=== PATIENT | female | born 1980 | race American Indian/Alaskan Native ===

== ENCOUNTER 2016-10-14 13:56 | Emergency (ER) | payer MEDICAID, OTHER ==
[2016-10-14 16:17] VITALS: BMI 23.3
--- NOTE | 2016-10-14 18:20 | US ---
Ultrasound biophysical profile Indication: Unclear GA Technique: Grayscale, color flow, and M-mode sonographic images of the single live intrauterine were obtained. Comparison: None available Findings: There is a single live intrauterine gestation. The fetus is in cephalic position. Anterior fundal placenta. There is no evidence of previa. There is a normal amount of amniotic fluid. The LEXY measures 11 cm . M-mode imaging demonstrates a heart rate to be 140.7 beats per min. movements 2/2 breathing 2/2 tone 2/2 Amniotic fluid 2/2 Total score impression: 8/8 Impression: Biophysical profile of 8 out of 8. Single live intrauterine in cephalic position with a heart rate of 140.7 beats per min. Estimated gestational age 36 weeks 5 days.
--- NOTE | 2016-10-14 18:24 | US ---
age ultrasound Indication: Unsure of CATHLEEN Comparison: biophysical profile performed 10/14/16 Technique: Real-time ultrasound was performed through the pelvis. Findings: There is a single living fetus in cephalic presentation. Amniotic fluid volume is within normal limits. Anterior fundal placenta. The placenta is not previa. Bilateral ovaries were not visualized. Cervix length measures approximately 3.8 cm. Measurements and calculations: Fetus has a composite sonographic age of 36 weeks, 5 days plus/-1 week. This calculation is based on the biparietal diameter, head circumference, abdominal circumference, and femur length. Estimated heart rate 147.3 beats per min. Impression: Single living fetus with a composite sonographic age of 36 weeks 5 days. Estimated heart rate 147.3 beats per min.
--- NOTE | 2016-10-14 20:19 | OBDCSUM ---
Datetime: 10/14/2016 18:58 Discharged to, Provider: Home Follow up at, Provider: hospital Disch Instr Activity: Normal activity Disch Instr Diet: Regular Discharge Instructions, Provider: Routine instructions given Discharge Diagnosis, Provider: False Labor - Undelivered Discharge Time: 10/14/2016 20:16 Follow up in weeks, Provider: next week Disch Referrals: None Disch Activity Restrictions: No exercising; No lifting; Minimize walking; No sexual activity; Nothin g in vagina - [place], tampons, douche Discharge Comment, Provider: 35 y/o F 39.5 wks GA, LMP 01/11/1016, CATHLEEN 10/16/16 comes to the ED c/o low er abdo pain which started 2 days ago. Not in active labor. no ctx/Bv/LOF, +FM patient observed in OB ED, labs ordered, growth US done. per US GA is around 36.5 weeks. BPP done unremarkable and suitable w/ GA of 36.5 wks. pt is schaduled for c/s on next friday. P: f/u HepB, RPR, HIV, Rubella, Type_screen pt given Labor precautions continue PNV come to ED if pain worsens Case discussed with Dr. Blossom Espinal, PGY-1
--- NOTE | 2016-10-14 20:19 | OBHP ---
Datetime: 10/14/2016 15:19 IP Adm Impression: Term, intrauterine IP Chief Complaint Other: Pain IP Admit Plan: Observation/Evaluation Admit Comment, IP Provider: KYLIE# [id number] A 35 y/o F 39.5 wks GA, LMP 01/11/1016, CATHLEEN 10/16/16 comes to the ED c/o lower abdo pain which started 2 days ago, goes from front to back, 5/10 in sev erity and sharp stabbing knife like pain. Activities make it worse, nothing makes it better. pain is constant since last 2 days but severe during night and morning. - negative for LOF/VB, + ctx and + FM PNC: not since September 11 when she came to [facility] from [place], visited doctor twice in [place] PNI: none PNL: everything unremarkable so far U/S: was done on september 06, no issues POBH: , 2 term NVDs complicated by varicosities and lots of bleeding after deliveries. last on e was premature C/S to avoid any hemorrhage or bleeding PGYN: no PAP, tested for HIV/STDs were negative as per pt ROS: mild headache, no N/V, unremarkable PMH: Varicosities PSH: C/S to avoid Varicosity associated bleeding All: NKDA Meds: PNV Immunizations: Received 2 so far, doesn't know which one SH: no A/S/D VS: 114/75 FHR: 132 No ctx PE: NAD B/L LEs varicosities big varicosity on left vulva and vaginal area A: A 35 y/o F 39.5 wks GA, LMP 01/11/1016, CATHLEEN 10/16/16 comes to the ED c/o lower abdo pain which starte d 2 days ago. No active labor P: Monitor VS Monitor FHR f/u growth US to determine GA and CATHLEEN (possible c/s!) NPO (last meal at 1pm) f/u HepB, RPR, HIV, Rubella, Type_screen Case discussed with Dr. Blossom Espinal, PGY-[address] Cerrato - Patient evaluated with the resident. Patient is a , 2 previous and CD x 1 with CATHLEEN provided by patient 10/16. If CATHLEEN were correct, patient would be 39.5wks today. P libby presents with vaginal pain. Patient has care in [facility], no care in [place], can not find a clinic that will accept her because she is so far along. Patient has painful leg and vaginal varicosities, as per patient her last was done at term for increased bleeding with variocit ies. FHR = 130 mod radha, +accels, no decels, no contractions. VE=1/thick/high. TOCO - no contractions. Only recor patient has is an U/S that dates the patient on 09/06 that gives an EDC of 10/31 w ith the baby measuring about 32 wks. If that is her due date she is 37.4 wks today. Explained to oracio ent that third trimester U/S can be up to 3wks off+/-, U/S done today which measured fetus measuring around 36.5 wks ovarall. All measurements were 36-37 wks. Patient is not in labor, fetus is not in di stress - routine repeat otherwise is advised at after 39 wks. Based on this information, th e CATHLEEN being used for the patient is 10/31 and scheduled repeat for 10/25, manisha all l abs and GBS collected. Explained to patient in detail and with interpretor what information was found , her confirmed due date at this point and labor precautions and reason to come back to hospital [facility]. All questions by patient answered. Patient otherwise will return for repeat 10/25 Extremities - PN: Abnormal Abdomen - PN: Normal Back - PN: Normal Lungs - PN: Normal Heart - PN: Normal Neurologic - PN: Normal General - PN: Normal Presentation-Admit: Vertex FHR - Baseline A Provider: 130 Contraction Comments Provider: none Comments, ACOG Physical Exam: B/L LEs varicosities big varicosity on left vulva and vaginal area Gestation - Est Wks by US: 39.5 EGA AdmitDate IP: 39.5 IP Chief Complaint: Uterine contractions; Maternal discomfort NICHD Variability Prov Fetus A: Moderate 6-25bpm NICHD Accel Fetus A IP Provider: [id number] NICHD Decel Fetus A IP Provider: None Genitourinary Exam: Abnormal
[2016-10-14 23:18] VITALS: BP 108/63; PULSE 62; RESP 17; TEMP 99; O2SAT 100
[2016-10-15 17:02] LABS: RAPID PLASMA REAGIN NONREACTIVE (NONREACTIVE)
== END 2016-10-14 19:00 | disposition home or self-care (01) ==
LOC: H.EROB2 13:56
DX: O26.893 Other specified pregnancy related conditions, third trimester (principal); R10.30 Lower abdominal pain, unspecified; Z3A.39 39 weeks gestation of pregnancy

== ENCOUNTER 2016-10-19 12:27 | Inpatient (IN) | payer MEDICAID, OTHER ==
[2016-10-19 14:00] VITALS: BMI 23.4
[2016-10-19] MEDS: Lactated Ringer's 1,000 ML IV SCH ×2 (14:13→14:15)
[2016-10-19] MEDS ORDERED: Lactated Ringer's 1,000 ML IV SCH ×3 (14:44→19:45)
[2016-10-19] MEDS ORDERED: ceFAZolin 2 GM in Sodium Chloride 0.9% 100 ML IVPB ONE (14:44)
[2016-10-19] MEDS ORDERED: Sodium Chloride 0.9% 1,000 ML IV SCH (14:45)
[2016-10-19] MEDS ORDERED: Succinylcholine 200 mg/10 ml Inj IV ONE (15:22)
[2016-10-19] MEDS ORDERED: ePHEDrine 50 mg/ml Inj ONE ×2 (15:22→16:03)
[2016-10-19] MEDS ORDERED: Propofol 10 mg/ml Inj (20 ML) ONE (15:23)
[2016-10-19] MEDS ORDERED: Morphine 1 mg/ml preservative-free Inj(Duramorph) ONE (15:23)
[2016-10-19] MEDS ORDERED: Phenylephrine 10 mg/ml Inj ONE (15:23)
[2016-10-19 15:27] LABS: RENAL EPITHELIAL < 1 /hpf (0-3); SQUAMOUS EPITHIAL 2 /hpf (0-5); URINE BACTERIA RARE (<OCC); URINE BILIRUBIN NEGATIVE (NEGATIVE); URINE BLOOD SMALL (NEGATIVE); URINE CLARITY SLIGHTY-CLOUDY (Clear); URINE COLOR YELLOW (YELLOW); URINE GLUCOSE (UA) NEG (Normal); URINE LEUKOCYTE ESTERASE NEG Leu/uL (Negative); URINE NITRATE NEGATIVE (NEGATIVE); URINE PROTEIN NEGATIVE (NEGATIVE); URINE UROBILINOGEN 0.2-1.0 mg/dL (0.2-1.0)
[2016-10-19 15:34] LABS: BASO % 0.4 % (0.0-2.0); EOS # 0.1 K/uL (0.0-0.7); EOS % 0.8 % (0.0-4.0); LYMPH # 2.8 K/uL (1.0-4.3); LYMPH % 29.2 % (20.0-40.0); MEAN CELL VOLUME 91.1 fl (81.0-99.0); MEAN CORPUSCULAR HEMOGLOBIN 30.4 pg (27.0-31.0); MEAN CORPUSCULAR HGB CONC 33.4 g/dL (33.0-37.0); MONO # 1.1 K/uL (0.0-0.8); MONO % 11.2 % (0.0-10.0); NEUT # 5.5 K/uL (1.8-7.0); NEUT % 58.4 % (50.0-75.0); NRBC % 0.1 % (0.0-0.0); RBC 3.93 Mil/uL (3.80-5.20); RED CELL DISTRIBUTION WIDTH 13.2 % (11.5-14.5); WHITE BLOOD COUNT 9.5 K/uL (4.8-10.8)
[2016-10-19] MEDS ORDERED: Oxytocin 30 units/LR 500ML 30 U/500 ML BAG IV ONE ×2 (15:36→17:42)
[2016-10-19 15:43] LABS: BLOOD UREA NITROGEN 9 mg/dl (7-17); CALCIUM 9.2 mg/dL (8.4-10.2); GFR AFRICAN-AMERICAN > 60; GFR NON-AFRICAN AMERICAN > 60
[2016-10-19] MEDS ORDERED: DiphenhydrAMINE 50 mg/ml Inj IVP PRN ×2 (17:17→20:52)
[2016-10-19] MEDS ORDERED: Oxycodone/Acetaminophen 5/325 mg Tab PO PRN ×3 (17:24→20:52)
--- NOTE | 2016-10-19 17:41 | OBDS ---
DELIVERY PERSONNEL Delivery Doctor: Angelika Lopez MD Scrub Nurse: Tracee Trimble Anesthesiologist: Jacob Rayo MD Resident: MATERNAL INFORMATION Delivery Anesthesia: Spinal Provider Comments: op note preop dx: prior cd; labor; 37wk;inadequate pnc postop dx: [facility]1 anesth: spinal dr rayo ebl: 700cc findings: moder mecon; 2710g; male; 9_9 path: placenta time: 1609 pt to rr neon to nbn LABOR SUMMARY EDC: 10/16/2016 00:00 STAGES OF LABOR Stage 3 hrs: 0 Stage 3 min: 1 BABY A INFORMATION Infant Delivery Date/Time: 10/19/2016 16:20 Method of Delivery: Born in Route : No : N/A Forceps: N/A Vacuum Extraction: N/A Shoulder Dystocia : No SHOULDER DYSTOCIA BABY A Infant Delivery Date/Time: 10/19/2016 16:20 PRESENTATION/POSITION BABY A Presentation: Cephalic Breech Presentation: N/A PLACENTA INFORMATION BABY A Placenta Delivery Time : 10/19/2016 16:21 Placenta Method of Delivery: Manual Removal Placenta Status: Delivered SCORES BABY A Heart Rate 1 min: >100 bpm Resp Effort 1 min: Good Cry Reflex Irritability 1 min: Cough or Sneeze or Pulls Away Muscle Tone 1 min: Active Motion Color 1 min: Body Patriot, Extremities Blue Resuscitation Effort 1 min: Tactile Stimulation SCORE 1 MIN: 9 Heart Rate 5 min: >100 bpm Resp Effort 5 min: Good Cry Reflex Irritability 5 min: Cough or Sneeze or Pulls Away Muscle Tone 5 min: Active Motion Color 5 min: Body Patriot, Extremities Blue Resuscitation Effort 5 min: Tactile Stimulation SCORE 5 MIN: 9 INFANT INFORMATION BABY A Gestational Age at Delivery: 40.3 Gestational Status: Term Infant Outcome : Liveborn Infant Condition : Stable Sex: Female IDENTIFICATION/MEDS BABY A ID Band Number: [id number] WEIGHT/LENGTH BABY A Infant Birthweight (gms): 2710 Infant Weight (lb): 6 Infant Weight (oz): 0 CORD INFORMATION BABY A No. Cord Vessels: 3 Nuchal Cord : N/A Nuchal Cord Other: na Cord pH Baby Arterial: yes Infant Cord pH Baby Venous: yes Cord Blood Taken: Yes Banking/Donate Info: na Suction: Mouth; Nose ASSESSMENT BABY A Infant Complications: None Physical Findings at Delivery: Within Normal Limits Respirations: Appears Normal Aviation Tactical Readiness Officer/ALS Called : No Infant Care By: /Pawan Varela/Pawan Ferguson Transferred To: [facility]
--- NOTE | 2016-10-19 21:10 | OBADHP ---
Datetime: 10/19/2016 18:30 Pelvic Type - PN: Adequate Extremities - PN: Abnormal Abdomen - PN: Normal Back - PN: Normal Lungs - PN: Normal Heart - PN: Normal Thyroid - PN: Normal Neurologic - PN: Normal HEENT - PN: Normal General - PN: Normal Comments, ACOG Physical Exam: B/L LEs varicosities big varicosity on left vulva and vaginal area IP Chief Complaint: Uterine contractions Genitourinary Exam: Abnormal EGA AdmitDate IP: 40.3 IP Adm Impression: Term, intrauterine IP Admit Plan: Admit to unit Datetime: 10/19/2016 13:37 Admit Comment, IP Provider: A 35 y/o F , LMP 01/11/1016, CATHLEEN- U/S done on 10/14 showed all mesurem ents were 36-37 wks based on this information CATHLEEN being used for the pt is 10/31 and pt was scheduled repeat C/S for 10/25, no records of any first trimester U/S. U/S done on september 06 shows CATHLEEN 10/31/16. - pt comes to the ED c/o lower abdo pain and CTX which started yesterday 10PM. 09/16 in severity an d feels ctx every 20 to 30 mins, as per pt. - negative for LOF, little VB, + ctx and + FM ROS: no N/V, unremarkable PNC: not since September 11 when she came to [facility] from [place], visited doctor twice in [place] PNI: none PNL: GBS negative, Hep B nega, HIV nega, Rubella immune, RPR nonreactive U/S: was done on september 06, and 10/14/16 no issues POBH: , 2 term NVDs complicated by varicosities and lots of bleeding after deliveries. last on e was C/S to avoid any hemorrhage or bleeding and was done 1 wk before the CATHLEEN; term deliveries @ 39-40wks in prior preg PGYN: no PAP PMH: Varicosities, and hypercholesterolemia PSH: C/S to avoid Varicosity associated bleeding All: NKDA Meds: PNV Immunizations: Received 2 so far, doesn't know which one SH: no A/S/D VS: 128/85 FHR: 135 PE: NAD B/L LEs varicosities big varicosity on left vulva and vaginal area 2 cm dilated and 30% A: A 35 y/o F , CATHLEEN by most recent U/S 10/31, scheduled for c/s on 10/25, c/o pain and ctx P: Monitor VS Monitor FHR NPO (last meal at 8am) urinary irritability r/o UTI IVF UA Evaluate for labor Case discussed with Dr. Boyd -- Jean Espinal, PGY-1 pt was examined by at 2:35 PM and Pt is in labor 2cm, 80%, -2 and decision made to per form today. -- Jean Espinal, PGY-1 obh addendum: I: Labor prior cd P: for repeat cdA 35 y/o F , LMP 01/11/1016, CATHLEEN- U/S done on 10/14 showed all mesurements were 36-37 wks based on this information CATHLEEN being used for the pt is 10/31 and pt was scheduled repeat C/S for 10/25, no records of any first trimester U/S. U/S done on september 06 shows CATHLEEN 10/31/16. - pt comes to the ED c/o lower abdo pain and CTX which started yesterday 10PM. 09/16 in severity an d feels ctx every 20 to 30 mins, as per pt. - negative for LOF, little VB, + ctx and + FM ROS: no N/V, unremarkable PNC: not since September 11 when she came to [facility] from [place], visited doctor twice in [place] PNI: none PNL: GBS negative, Hep B nega, HIV nega, Rubella immune, RPR nonreactive U/S: was done on september 06, and 10/14/16 no issues POBH: , 2 term NVDs complicated by varicosities and lots of bleeding after deliveries. last on e was C/S to avoid any hemorrhage or bleeding and was done 1 wk before the CATHLEEN; term deliveries @ 39-40wks in prior preg PGYN: no PAP PMH: Varicosities, and hypercholesterolemia PSH: C/S to avoid Varicosity associated bleeding All: NKDA Meds: PNV Immunizations: Received 2 so far, doesn't know which one SH: no A/S/D VS: 128/85 FHR: 135 PE: NAD B/L LEs varicosities big varicosity on left vulva and vaginal area 2 cm dilated and 30% A: A 35 y/o F , CATHLEEN by most recent U/S 10/31, scheduled for c/s on 10/25, c/o pain and ctx P: Monitor VS Monitor FHR NPO (last meal at 8am) urinary irritability r/o UTI IVF UA Evaluate for labor Case discussed with Dr. Boyd -- Jean Espinal, PGY-1 pt was examined by at 2:35 PM and Pt is in labor 2cm, 80%, -2. will do emergency C-sec tion FHR - Baseline A Provider: 135 Vital Signs Provider: Reviewed; Within Normal Limits NICHD Decel Fetus A IP Provider: None Dilatation, Provider: 2 Effacement, Provider: 30 Station, Provider: -3 Datetime: 10/14/2016 15:19 IP Chief Complaint Other: Pain Presentation-Admit: Vertex Contraction Comments Provider: none Gestation - Est Wks by US: 39.5 NICHD Variability Prov Fetus A: Moderate 6-25bpm NICHD Accel Fetus A IP Provider: [id number]
--- NOTE | 2016-10-19 21:12 | OBADHP ---
Datetime: 10/19/2016 18:30 Admit Comment, IP Provider: A 35 y/o F , LMP 01/11/1016, CATHLEEN- U/S done on 10/14 showed all mesurem ents were 36-37 wks based on this information CATHLEEN being used for the pt is 10/31 and pt was scheduled repeat C/S for 10/25, no records of any first trimester U/S. U/S done on september 06 shows CATHLEEN 10/31/16. - pt comes to the ED c/o lower abdo pain and CTX which started yesterday 10PM. 09/16 in severity an d feels ctx every 20 to 30 mins, as per pt. - negative for LOF, little VB, + ctx and + FM ROS: no N/V, unremarkable PNC: not since September 11 when she came to [facility] from [place], visited doctor twice in [place] PNI: none PNL: GBS negative, Hep B nega, HIV nega, Rubella immune, RPR nonreactive U/S: was done on september 06, and 10/14/16 no issues POBH: , 2 term NVDs complicated by varicosities and lots of bleeding after deliveries. last on e was C/S to avoid any hemorrhage or bleeding and was done 1 wk before the CATHLEEN; term deliveries @ 39-40wks in prior preg PGYN: no PAP PMH: Varicosities, and hypercholesterolemia PSH: C/S to avoid Varicosity associated bleeding All: NKDA Meds: PNV Immunizations: Received 2 so far, doesn't know which one SH: no A/S/D VS: 128/85 FHR: 135 PE: NAD B/L LEs varicosities big varicosity on left vulva and vaginal area 2 cm dilated and 30% A: A 35 y/o F , CATHLEEN by most recent U/S 10/31, scheduled for c/s on 10/25, c/o pain and ctx P: Monitor VS Monitor FHR NPO (last meal at 8am) urinary irritability r/o UTI IVF UA Evaluate for labor Case discussed with Dr. Boyd -- Jean Espinal, PGY-1 pt was examined by at 2:35 PM and Pt is in labor 2cm, 80%, -2 and decision made to per form today. -- Jean Espinal, PGY-1 A 35 y/o F , LMP 01/11/1016, CATHLEEN- U/S done on 10/14 showed all mesurements were 36-37 wks based on this information CATHLEEN being used for the pt is 10/31 and pt was scheduled repeat C/S for 10/25, no r ecords of any first trimester U/S. U/S done on september 06 shows CATHLEEN 10/31/16. - pt comes to the ED c/o lower abdo pain and CTX which started yesterday 10PM. 09/16 in severity an d feels ctx every 20 to 30 mins, as per pt. - negative for LOF, little VB, + ctx and + FM ROS: no N/V, unremarkable PNC: not since September 11 when she came to [facility] from [place], visited doctor twice in [place] PNI: none PNL: GBS negative, Hep B nega, HIV nega, Rubella immune, RPR nonreactive U/S: was done on september 06, and 10/14/16 no issues POBH: , 2 term NVDs complicated by varicosities and lots of bleeding after deliveries. last on e was C/S to avoid any hemorrhage or bleeding and was done 1 wk before the CATHLEEN; term deliveries @ 39-40wks in prior preg PGYN: no PAP PMH: Varicosities, and hypercholesterolemia PSH: C/S to avoid Varicosity associated bleeding All: NKDA Meds: PNV Immunizations: Received 2 so far, doesn't know which one SH: no A/S/D VS: 128/85 FHR: 135 PE: NAD B/L LEs varicosities big varicosity on left vulva and vaginal area 2 cm dilated and 30% A: A 35 y/o F , CATHLEEN by most recent U/S 10/31, scheduled for c/s on 10/25, c/o pain and ctx P: Monitor VS Monitor FHR NPO (last meal at 8am) urinary irritability r/o UTI IVF UA Evaluate for labor Case discussed with Dr. Boyd -- Jean Espinal, PGY-1 pt was examined by at 2:35 PM and Pt is in labor 2cm, 80%, -2 and decision made to per form today. -- Jean Espinal, PGY-1 obh addendum: I: Labor prior cd P: for repeat cd EGA AdmitDate IP: 40.3
[2016-10-20] MEDS: Lactated Ringer's 1,000 ML IV SCH ×2 (02:47→12:52)
--- NOTE | 2016-10-20 03:58 | OP ---
PROCEDURE DATE: PREOPERATIVE DIAGNOSES: 1. Inadequate care. 2. A 37 week gestation by 36 weeks ultrasound. 3. History of prior section. 4. Onset of labor. POSTOPERATIVE DIAGNOSES: 1. Inadequate care. 2. A 37 week gestation by 36 weeks ultrasound. 3. History of prior section. 4. Onset of labor. PROCEDURE: Repeat low-transverse section. SURGEON: Westley Boyd MD PICKING TECH: Dr. Estrada. SECOND CHARGE OUT CLERK: Dr. Espinal, PGY1. ANESTHESIA: Spinal. ANESTHESIOLOGIST: Dr. Rayo. ESTIMATED BLOOD LOSS: 700 mL. COMPLICATIONS: None. FINDINGS: Showed a viable male in vertex presentation with moderate meconium, a weight of 2710 g and Apgars of 9 and 9. PATHOLOGY: Placenta was sent to pathology. TIME OF SURGERY: 1609 hours. DESTINATION: The patient to recovery room and to nursery. INDICATIONS: The patient is a 35-year-old female, 4 para 3 who presented at 37 weeks gestation by an ultrasound which had been done the week prior to presentation. She presented with complaint of painful contractions and was noted to progress from 2 cm and 30% effaced to 2.5 cm and 80% effacement with increasing an intensity of pain. An informed consent was obtained for a repeat section. Risks, benefits and indications were discussed with the patient. She agreed with planned procedure. DESCRIPTION OF PROCEDURE: The patient was taken back to the operating room, where she underwent a spinal anesthesia without complications. She was then prepped and draped in the routine sterile fashion. A Pfannenstiel skin incision was made with a knife at the site of the old scar and the incision was then extended down to the underlying rectus fascia, which is incised in the midline and extended bilateral. The inferior rectus facial edge was grasped with Lele, and the underlying rectus muscle was dissected off. The same procedure was performed along the superior rectus fascial edge. Peritoneum was identified and in the midline and extended superiorly and inferiorly. A bladder blade was placed and the bladder flap was created using sharp and blunt dissection. A low transverse incision was made with scalpel in the uterine cavity entered bluntly. Moderate meconium was noted. The uterine incision was extended laterally in a superior inferior manner. The 's head was delivered followed by the remaining portion of the baby. The mouth and nares were suctioned. The cord was clamped and cut. The baby was handed off to the waiting general production laborer. A segment of the cord was obtained for cord pH. Cord blood was collected. The placenta was delivered spontaneously and intact. The uterus was exteriorized and cleared of all clots and debris. The uterine incision was reapproximated with 0 Vicryl in a running locked fashion. The abdomen was irrigated and cleared of all clots and debris. The uterine incision was reinspected and good hemostasis was confirmed. The peritoneum was closed with 2-0 Vicryl in a running fashion. The muscle was closed with 2-0 Vicryl in a running fashion. The fascia was closed 0 Vicryl in the running fashion beginning in the right lateral quadrant and going to the midline and other stitch beginning in the left lateral going to the midline. The wound was irrigated and cleared of all clot and debris. Subcutaneous tissues were re-approximated with 2-0 plain in a simple interrupted fashion, and the skin was reapproximated with barbara. All sponge and lap needle counts were correct x2. Of note Dr. Estrada, was my phlebotomist medical lab assistant, he assisted in surgical entry, surgical hemostasis, delivery of the baby and surgical closure. Procedure would not have been possible without his assistance. Westley Boyd MD
[2016-10-20 08:08] LABS: HEMOGLOBIN 10.4 g/dL (12.0-16.0); MEAN CORPUSCULAR HEMOGLOBIN 30.8 pg (27.0-31.0); MEAN CORPUSCULAR HGB CONC 33.9 g/dL (33.0-37.0); RBC 3.36 Mil/uL (3.80-5.20); RED CELL DISTRIBUTION WIDTH 13.4 % (11.5-14.5)
--- NOTE | 2016-10-20 11:36 | OBPPN ---
Datetime: 10/20/2016 10:48 PP Pain Prov: Within normal limits PP Nausea Prov: Denies PP Flatus Prov: Yes PP BM Prov: No PP Breasts Prov: Normal PP Heart Prov: Normal PP Lungs Prov: Normal PP Abdomen/Uterus Prov: Normal PP Lochia Prov: Normal PP Vulva/Perineum Prov: Normal PP CVA Tenderness Prov: Normal PP Extremities Prov: Normal PP C/S Incision Prov: Normal PP Progress Prov: Normal PP Comments Phys Exam Prov: abd: incision site: low transverse, bandage is clean and dry. +BS. soft, mild tenderness, ND. Fundus firm at level of umbilicus. No guarding/rigidity. L ext: nontender, no erythema, homans neg b/l PP Impression Prov: Normal progression PP Plan Prov: Continue present management PP Progress Note Prov: pt seen and examined at bedside. No acute events overnight. Afebrile. Pain co ntrolled with PO meds. OOB/ambulating w/o difficulty this morning. Tolerating PO intake. Breastfeedin g but supplementing with bottle feeding. Decreased bleeding. +Flatus, no BM yet. No other complaints. ROS: negative PE: as above A/P: 35 y/o s/p on 10/19/2016 @ 17:00. afebrile, pain controlled, doing well on POD #1. -c/w current managment -pain control, OOB/ambulation -follow up pcb -tdap ordered -anticipate dc 10/22/2016 David Alanis MD PGY2 @ 10:53am Addendum by Dr. Cerrato: I have evaluated the patient independently and I agree with the above. Paige ent is PPD #1, continue postop routine orders, Percocet/MOtrin prn pain, encourage ambulation/breastf eeding Vital Signs Provider PP: Reviewed; Within Normal Limits
[2016-10-20] MEDS: Oxycodone/Acetaminophen 5/325 mg Tab PO PRN ×2 (14:55→22:09)
--- NOTE | 2016-10-21 08:51 | OBPPN ---
Datetime: 10/21/2016 07:36 PP Pain Prov: Within normal limits PP Nausea Prov: Denies PP Flatus Prov: Yes PP BM Prov: No PP Breasts Prov: Normal PP Heart Prov: Normal PP Lungs Prov: Normal PP Abdomen/Uterus Prov: Normal PP Lochia Prov: Normal PP Vulva/Perineum Prov: Normal PP CVA Tenderness Prov: Not Done PP Extremities Prov: Normal PP C/S Incision Prov: Normal PP Progress Prov: Normal PP Comments Phys Exam Prov: breast: nonengorged abd- fundus firm, nt, 2cm below incision: c/d/i PP Impression Prov: Normal progression PP Plan Prov: Continue present management PP Progress Note Prov: S: 35 yo s/p repeat elective on 10/19/16. Pt. is seen and exami debbie at bedside this AM. No overnight events. Pt reports mild abdominal pain, but well controlled with pain meds. OOB/Ambulation well without dizziness. Breast feeding without difficulty. Tolerating PO d iet. Lochia is similar to menses volume. Voiding freely, no Bowel movement, but passing gas per rectu m. Denies fever/chills, diarrhea, nausea/vomiting, chest pain, dyspnea, and dizziness. O: VS: stable GEN: NAD, seen baby Cardio: s1s2, no M/G/R Resp: clear breath sounds b/l Abdomen: BS+, tenderness to palpation. Incision scar noted, well healing no exudate seen, dry and intact. Uterus is firm and at the level of the umbilicus. EXT: No edema, calves nontender NEURO/PSYCHI: AAOx3, no grossly focal deficit, preserved affect and mood. Assessment/Plan: 35yo s/p repeat elective on 10/19/16. Pt remains afebrile, tolerati ng pain with medication, tolerating PO intake, doing well on PPD#2. OOB with caution SCDs for DVT prophylaxis, pt ambulating Percocet 5/325mg, toradol 30mg and Ibuprofen 600mg for pain. Colace 100mg PO BID for constipation Encourage and ambulating CBC post op, stable 10.4/30.6 Tdap before d/c Anticipated d/c to home tomorrow, 10/22/16. Phyllis Corbin, PGY-I OBH ADDENDUM: Pt seen _ examined by me. Agree with above assessment and plan. Vital Signs Provider PP: Reviewed
[2016-10-21] MEDS: Oxycodone/Acetaminophen 5/325 mg Tab PO PRN ×2 (09:50→17:46)
[2016-10-21] MEDS ORDERED: Docusate-Senna 50 mg-8.6 mg Tab PO STA (10:03)
--- NOTE | 2016-10-22 10:01 | OBDCSUM ---
Datetime: 10/22/2016 05:29 Discharged to, Provider: Home Follow up at, Provider: [facility] Disch Instr Activity: Normal activity Disch Instr Diet: Regular Discharge Instructions, Provider: Routine instructions given Discharge Diagnosis, Provider: Term Delivered Follow up in weeks, Provider: 1-2w Disch Referrals: None Contraception discussed, Prov: Yes Disch Activity Restrictions: No sexual activity; Nothing in vagina - [place], tampons, douche Discharge Comment, Provider: DOA: 10/19/16 EGA: 41 Diagnosis: term PRisk factores: none summary of : A 35 y/o F , LMP 01/11/1016, No PN care L_D summary: DOL: 10/19/16 at 5:00PM NB: male : 9/9 Weight: 2710 PP summary: No complications during PP. Incision intact w/ barbara, clean and dry. Lochia= menses, mild pain, controlled with medications Rubella immune, Tdap given blood type: O+ CBC pp: 10.4/30.6 Discharge Date 10/22/16, time 10:00AM Discharge Instrucctions: -encourage -Ibuprofen for pain PRN -Percocet for severe pain -Colace -Ambulate as tolerated -f/u Factory Supervisor and PCP - Jean Espinal, PGY-1 OB Hospitalist note...Pt was seen and examined by me today....agreewith note to dicharge home and follow up in Contraception after Delivery: Undecided
--- NOTE | 2016-10-22 10:01 | OBPPN ---
Datetime: 10/22/2016 06:05 PP Pain Prov: Within normal limits PP Nausea Prov: Denies PP Flatus Prov: Yes PP BM Prov: Yes PP Heart Prov: Normal PP Lungs Prov: Normal PP Abdomen/Uterus Prov: Normal PP Lochia Prov: Normal PP CVA Tenderness Prov: Normal PP Extremities Prov: Normal PP C/S Incision Prov: Normal PP Progress Prov: Normal PP Impression Prov: Normal progression PP Plan Prov: Continue present management PP Progress Note Prov: T-ZONE# [id number] S: 35 yo s/p repeat elective on 10/19/16. Pt. is seen and examined at bedside this A M. No overnight events. Pt reports mild abdominal pain, but well controlled with pain meds. OOB/Ambul ation well without dizziness. Breast feeding without difficulty. Tolerating PO diet. Lochia is simila r to menses volume. Voiding freely, Had a Bowel movement, and passing gas per rectum. Denies fever/ch ills, diarrhea, nausea/vomiting, chest pain, dyspnea, and dizziness. O: VS: stable GEN: NAD, seen baby Cardio: s1s2, no M/G/R Resp: clear breath sounds b/l Abdomen: BS+, tenderness to palpation. Incision scar noted, well healing no exudate seen, dry and intact. Uterus is firm and at the level of the umbilicus. EXT: No edema, calves nontender NEURO/PSYCHI: AAOx3, no grossly focal deficit, preserved affect and mood. Assessment/Plan: 35yo s/p repeat elective on 10/19/16. Pt remains afebrile, tolerati ng pain with medication, tolerating PO intake, doing well on PPD#3. OOB with caution SCDs for DVT prophylaxis, pt ambulating Percocet 5/325mg, toradol 30mg and Ibuprofen 600mg for pain. Colace 100mg PO BID for constipation Encourage and ambulating CBC post op, stable 10.4/30.6 Tdap given Anticipated d/c to home today, 8/15/17. ---Jean Espinal, PGY-1 OB Hospitalist note...Pt was seen and examined by me today....agreewith note to dicharge home and follow up in 1-2w IP PP Procedures: None Vital Signs Provider PP: Reviewed; Within Normal Limits
[2016-10-22] MEDS: Oxycodone/Acetaminophen 5/325 mg Tab PO PRN (14:06)
[2016-10-22 22:16] VITALS: BP 117/79; PULSE 80; RESP 19; TEMP 98.5; O2SAT 99
== END 2016-10-22 16:40 | disposition home or self-care (01) | DRG 766 ==
LOC: H.EROB2 12:27 → H.EROB 12:46 → H.L&D 14:50 → H.EROB2 15:02 → H.OB/GYN 20:32
PROVIDERS: ADMIT Obstetrics & Gynecology; ATTEND Obstetrics & Gynecology
PROC: 10D00Z1 Extraction of Products of Conception, Low, Open Approach (ICD-10-PCS; principal; 2016-10-19)
PROC: 4A1HXCZ Monitoring of Products of Conception, Cardiac Rate, External Approach (ICD-10-PCS; 2016-10-19)
DX: O34.211 Maternal care for low transverse scar from previous cesarean delivery (principal); K59.00 Constipation, unspecified; O77.0 Labor and delivery complicated by meconium in amniotic fluid; Z37.0 Single live birth; O99.284 Endocrine, nutritional and metabolic diseases complicating childbirth; E78.00 Pure hypercholesterolemia, unspecified; Z3A.37 37 weeks gestation of pregnancy; N85.8 Other specified noninflammatory disorders of uterus